=== PATIENT | female | born 1980 | race Caucasian/White ===

== ENCOUNTER 2018-01-22 20:09 | Emergency (ER) | payer SELFPAY ==
[2018-01-22] MEDS ORDERED: NS 1,000 ML IV ONE (20:33)
[2018-01-22] MEDS ORDERED: METOCLOPRAMIDE 10 MG/2 ML VIAL IVP ONE (20:34)
[2018-01-22] MEDS ORDERED: HYDROmorphONE/DILAUDID 2 MG/ML INJ IVP ONE (20:35)
[2018-01-22] MEDS ORDERED: ONDANSETRON 4 MG/2 ML VIAL ONE (20:44)
[2018-01-22] MEDS ORDERED: ONDANSETRON 4 MG/2 ML VIAL IVP ONE (20:56)
[2018-01-22] MEDS ORDERED: ACETAMINOPHEN 500 MG TAB PO ONE (21:41)
[2018-01-22] MEDS ORDERED: IBUPROFEN 600 MG TAB PO ONE (21:41)
[2018-01-22] MEDS ORDERED: HYOSCYAMINE SULFATE 0.125 MG TAB PO ONE (21:41)
--- NOTE | 2018-01-22 21:53 | EDPHY ---
H & P Stated Complaint: RLQ pain,vomiting for 1 day Time Seen by Provider: 01/22/18 20:23 HPI/ROS: This patient complains of abrupt onset of right lower quadrant pain while at rest 2 hr prior to arrival. She reports 8/10 pain that is sharp in nature associated with nausea and vomiting. She states that the vomiting started about 5 min after the pain. She tried to take ibuprofen but vomited within minutes of taking at eye does not think she kept down. She has ongoing nausea now and reports that the pain in her right lower quadrant improved a bit with her thighs flex compared to when they are extended. No other significant exacerbating factors. She states that this seems different than her pain from endometriosis and that is more sharp in nature. Her friend drove her in by private vehicle for evaluation. ROS: Constitutional: No fevers or chills HEENT: No recent URI symptoms. Pulmonary: No cough shortness of breath Cardiovascular: No lightheadedness GI: No upper abdominal pain. She said normal bowel movements recently. No hematemesis. No coffee-ground emesis. : No dysuria frequency urgency. No vaginal discharge. Her last menstrual period was unknown-she has q.3 months Depo-Provera shots with most recent in December. Integumentary: No skin rash Musculoskeletal: No recent trauma to her belly or elsewhere 10 point review of symptoms is performed and otherwise negative with exception of pertinent positives and negatives listed in HPI and ROS Source: Patient Exam Limitations: No limitations - Personal History LMP (Females 10-55): Extended Cycle BCP/Inj Current Tetanus Diphtheria and Acellular Pertussis (TDAP): Yes - Medical/Surgical History Hx Asthma: No Hx Chronic Respiratory Disease: No Hx Diabetes: No Hx Cardiac Disease: No Hx Renal Disease: No Hx Cirrhosis: No Hx Alcoholism: No Hx HIV/AIDS: No Hx Splenectomy or Spleen Trauma: No Other PMH: appendectomy,ectopic ,endometriosis - Family History Significant Family History: No pertinent family hx - Social History Smoking Status: Never smoked Alcohol Use: Occasionally Drug Use: Marijuana (Rare marijuana) Additional Social History: 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 - Physical Exam Exam: General Appearance: Alert, no distress. Eyes: Pupils equal and round no pallor or injection. ENT, Mouth: Mucous membranes moist. Respiratory: There are no retractions, lungs are clear to auscultation. Cardiovascular: Regular rate and rhythm. Gastrointestinal: Normoactive, soft, moderate right lower quadrant tenderness with no guarding or rebound. Neurological: GCS 15 Skin: Warm and dry, no rashes. Musculoskeletal: Neck is supple nontender. Extremities are symmetrical, full range of motion. Psychiatric: Mood and affect are normal DIFFERENTIAL DIAGNOSIS: After history and physical exam differential diagnosis was considered for ovarian cyst, ruptured ovarian cyst, ovarian torsion, mesenteric adenitis, constipation, IBS Constitutional: Initial Vital Signs Temperature (C) 37.8 C 01/22/18 20:19 Heart Rate 87 01/22/18 20:19 Respiratory Rate 16 01/22/18 20:19 Blood Pressure 136/100 H 01/22/18 20:19 O2 Sat (%) 96 01/22/18 20:19 O2 Delivery Mode Room Air Allergies/Adverse Reactions: ketorolac [From Toradol] Allergy (Verified 01/22/18 20:19) Penicillins Allergy (Verified 01/22/18 20:18) Home Medications: Medication Instructions Recorded Depo-Provera 150 mg/ml (*) 01/22/18 Ibuprofen [Motrin (*)] 600 mg PO Q6 PRN #30 tab 01/22/18 Ondansetron Odt [Zofran Odt] 4 - 8 mg PO Q4PRN PRN #4 tab 01/22/18 traMADol [Ultram 50 mg (*)] 50 - 100 mg PO Q4 PRN #20 tab 01/22/18 Medical Decision Making ED Course/Re-evaluation: IV normal saline bolus Zofran IV 0.5 mg of Dilaudid with partial relief After ultrasound patient continued complaining of pain stating that had returned to severe intensity. appreciating no evidence of surgical pathology based on exam or u/s, proceded with oral meds. She is then treated with Levsin sublingual, Benadryl IV, ibuprofen and Tylenol, tramadol The patient was upset that I declined to give her any further Dilaudid doses. She requested more Dilaudid to "get ahead of the pain". However the time that she was claiming severe pain she had a pulse of 72, was moving easily without increase in pain the and not have facial expression or other outward signs of significant discomfort. Discussion: Patient only with small 1.5 cm cyst on right ovary on ultrasound, normal CBC basic metabolic panel, negative urine in normal UA. No concerning findings on workup. Possibility of drug-seeking behaviors entertained given these findings. Patient understands need to return emergency department should she develop significant worsening of the pain despite the treatment plan of ibuprofen tramadol Levsin. She will follow up with OBGYN for any ongoing symptoms. - Data Points Medications Given: Discontinued Medications Acetaminophen (Tylenol) 1,000 mg PO EDNOW ONE Stop: 01/22/18 21:42 Last Admin: 01/22/18 21:50 Dose: 1,000 mg Diphenhydramine HCl (Benadryl Injection) 25 mg IVP EDNOW ONE Stop: 01/22/18 20:36 Last Admin: 01/22/18 21:39 Dose: Not Given Diphenhydramine HCl (Benadryl Injection) 25 mg IVP EDNOW ONE Stop: 01/22/18 21:42 Last Admin: 01/22/18 21:46 Dose: 25 mg Hydromorphone HCl (Dilaudid) 0.5 mg IVP EDNOW ONE Stop: 01/22/18 20:36 Last Admin: 01/22/18 20:49 Dose: 0.5 mg Hyoscyamine Sulfate (Levsin, Hyomax-Sl) 0.125 mg PO EDNOW ONE Stop: 01/22/18 21:42 Last Admin: 01/22/18 21:48 Dose: 0.125 mg Sodium Chloride (Ns) 1,000 mls @ 0 mls/hr IV EDNOW ONE; Wide Open PRN Reason: Protocol Stop: 01/22/18 20:34 Last Admin: 01/22/18 20:54 Dose: 1,000 mls Ibuprofen (Motrin) 600 mg PO EDNOW ONE Stop: 01/22/18 21:42 Last Admin: 01/22/18 21:50 Dose: 600 mg Metoclopramide HCl (Reglan Injection) 10 mg IVP EDNOW ONE Stop: 01/22/18 20:35 Last Admin: 01/22/18 20:55 Dose: Not Given Ondansetron HCl (Zofran) 4 mg IVP EDNOW ONE Stop: 01/22/18 20:57 Last Admin: 01/22/18 20:45 Dose: 4 mg Tramadol HCl (Ultram) 100 mg PO EDNOW ONE Stop: 01/22/18 22:37 Last Admin: 01/22/18 22:39 Dose: 100 mg Point of Care Test Results: CBC CBC Collection Date 01/22/18 CBC Collection Time 20:42 WBC 8.5 RBC 4.64 HGB 13.8 HCT 40.1 PLT 241 Neut # 4.9 Neut 56.7 LYMPH # 2.8 LYMPH 33.4 Other WBC # 0.8 Other WBC 9.9 MCV 86.4 Chemistry 01/22/18 21:02 POC Sodium 141 mEq/L mEq/L (135-145) POC Potassium 3.1 mEq/L L mEq/L (3.3-5.0) POC Chloride 105.0 mEq/L mEq/L (97-110) POC Total CO2 23 mEq/L mEq/L (22-31) POC BUN 4 mg/dL L mg/dL (7-23) POC Creatinine 0.7 mg/dL mg/dL (0.6-1.0) POC Glucose 97 mg/dL mg/dL (70-100) POC Calcium 9.6 mg/dL mg/dL (8.5-10.4) Urine Collection Date 01/22/18 Collection Time 20:45 HCG Results Negative Urine Dip Collection Date 01/22/18 Collection Time 21:00 Specific [place] (1.002-1.030) 1.005 PH (5.0-7.5) 6.0 Leukocytes (Negative) Negative Nitrites (Negative) Negative Protein (Negative) Negative Glucose (Negative) Negative Ketones (Negative) Negative Urobilnogen (0.2-1.0 EU) 0.2 Bilirubin (Negative) Negative Blood (Negative) Negative Departure - Departure Disposition: Home, Routine, Self-Care Clinical Impression: Ovarian cyst Condition: Good Instructions: Ovarian Cyst (ED) Additional Instructions: Diagnosis: Ovarian cyst Plan: Ibuprofen, Tylenol, tramadol in addition if needed for pain that prevents sleep. No driving, alcohol or come tramadol Follow up with Dr. Ebony Chavez-LILI for any ongoing symptoms. Return emergency department for any significant worsening despite treatment plan. Referrals: NONE *PRIMARY CARE P,. [Primary Care Provider] - As per Instructions Ebony Chavez MD [Medical Doctor] - As per Instructions Willie Rocha MD [Medical Doctor] - As per Instructions Prescriptions: Ibuprofen [Motrin (*)] 600 mg PO Q6 PRN #30 tab PRN Reason: Pain Ondansetron Odt [Zofran Odt] 4 - 8 mg PO Q4PRN PRN #4 tab PRN Reason: Vomiting traMADol [Ultram 50 mg (*)] 50 - 100 mg PO Q4 PRN #20 tab PRN Reason: breakthrough pain
[2018-01-22 22:33] VITALS: BP 139/80
[2018-01-22] MEDS ORDERED: traMADol 50 MG TAB PO ONE (22:36)
[2018-01-22] MEDS ORDERED: ONDANSETRON DISINTEGRATING 4 MG TAB ONE (22:50)
== END 2018-01-22 22:45 | disposition home or self-care (01) ==
LOC: CED 20:09
DX: N83.201 Unspecified ovarian cyst, right side (principal); E86.9 Volume depletion, unspecified; F12.90 Cannabis use, unspecified, uncomplicated; Z90.49 Acquired absence of other specified parts of digestive tract
CPT/HCPCS: 80048-PO; 96374; J1170; J1200; J2405